=== PATIENT | female | born 2000 | race Caucasian/White ===

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

== ENCOUNTER 2020-05-30 13:06 | Emergency (ER) | payer OTHER ==
[~2020-05-30] VITALS: Wt 68.0 kg
[~2020-05-30 13:06] MED LIST changes: +PREDNISONE20 M1 PO
[2020-05-30 13:14] VITALS: BP 146/66
[2020-05-30 13:37] LABS: BILIRUBIN Negative (Negative); BLOOD Negative (Negative); CLARITY Clear (Clear); COLOR Yellow (Yellow); GLUCOSE Negative (Negative); KETONE 3+ (Negative); LEUKO ESTERASE Negative (Negative); NITRITE Negative (Negative); SPECIFIC GRAVITY 1.025 (1.001-1.030)
[2020-05-30 13:43] LABS: MUCOUS 1+; WBC 0-2 wbc/hpf (0-5)
[2020-05-30] MEDS ORDERED: DICLEGIS DR 101 EACH PO (13:51)
[2020-05-30] MEDS ORDERED: PRENATAL ONE D1 EACH PO (13:51)
== END 2020-05-30 13:54 | disposition home or self-care (01) ==
LOC: ED 13:06
PROVIDERS: Physician Assistant
DX: O21.8 Other vomiting complicating pregnancy (principal); R10.30 Lower abdominal pain, unspecified; Z3A.00 Weeks of gestation of pregnancy not specified

== ENCOUNTER → 2020-06-09 | Outpatient (CLI) | payer OTHER ==
[~2020-06-09] MED LIST changes: +DICLEGIS DR 101 EACH PO; +PRENATAL ONE D1 EACH PO
== END | disposition home or self-care (01) ==
LOC: COVID19 15:40
PROVIDERS: ATTEND Family Medicine
DX: Z20.828 Contact with and (suspected) exposure to other viral communicable diseases (principal)

== ENCOUNTER → 2020-07-03 | Outpatient (CLI) | payer OTHER | END | disposition home or self-care (01) | LOC: US 13:00 | PROVIDERS: ATTEND Nurse Practitioner Women's Health | DX: Z34.91 Encounter for supervision of normal pregnancy, unspecified, first trimester (principal); Z3A.12 12 weeks gestation of pregnancy ==

== ENCOUNTER → 2020-08-31 | Outpatient (CLI) | payer OTHER | END | disposition home or self-care (01) | LOC: US 14:47 | PROVIDERS: ATTEND Nurse Practitioner Women's Health | DX: O32.1XX0 Maternal care for breech presentation, not applicable or unspecified (principal); Z3A.20 20 weeks gestation of pregnancy ==

== ENCOUNTER 2022-06-29 17:01 | Emergency (ER) | payer OTHER ==
[~2022-06-29] VITALS: Wt 68.0 kg
[2022-06-29 17:13] VITALS: BP 111/71
[2022-06-29] MEDS ORDERED: Ondansetron4 MG PO (17:48)
[2022-06-29 18:13] LABS: MEAN CORPUSCULAR HGB 28.1 pg (27.0-31.0); MEAN CORPUSCULAR HGB CONC 31.9 g/dl (33.0-37.0); MEAN PLATELET VOLUME 10.2 fl (9.6-12.3); PLATELET COUNT AUTOMATED 282 10*3/uL (130-400); RED BLOOD COUNT 5.34 10*6/uL (4.10-5.10); RED CELL DISTRI WIDTH 12.4 % (0-14.5); WHITE BLOOD COUNT 10.9 10*3/uL (4.8-10.8)
[2022-06-29 18:15] LABS: MANUAL DIFF REFLEX YES
[2022-06-29 18:30] LABS: ALKALINE PHOSPHATASE 77 U/L (46-116); BUN 15 mg/dl (9-23); CHLORIDE 107 mmol/L (98-107); POTASSIUM 4.1 mmol/L (3.4-5.1); SGPT/ALT 12 U/L (10-49); TOTAL PROTEIN 7.7 gm/dL (6.0-8.0)
[2022-06-29 18:33] LABS: PLATELET SUFFICIENCY NORMAL (NORMAL); TOTAL CELLS COUNTED 100 #CELLS; TOXIC GRANULATION SLIGHT
== END 2022-06-29 18:50 | disposition home or self-care (01) ==
LOC: ED 17:01
PROVIDERS: Student in an Organized Health Care Education/Training Program
DX: R11.2 Nausea with vomiting, unspecified (principal); Z98.890 Other specified postprocedural states

== ENCOUNTER 2023-03-09 16:33 | Emergency (ER) | payer OTHER ==
[~2023-03-09 16:33] MED LIST changes: +Ondansetron4 MG PO
[2023-03-09 16:52] VITALS: BP 121/67
[2023-03-09] MEDS ORDERED: PENICILLIN VK500 MG PO (17:45)
== END 2023-03-09 17:55 | disposition home or self-care (01) ==
LOC: ED 16:33
DX: K08.89 Other specified disorders of teeth and supporting structures (principal); Z98.890 Other specified postprocedural states

== ENCOUNTER 2023-09-30 22:48 | Emergency (ER) | payer OTHER ==
[~2023-09-30] VITALS: Ht 157.4 cm; Wt 79.8 kg
[~2023-09-30 22:48] MED LIST changes: +PENICILLIN VK500 MG PO
[2023-09-30 22:57] VITALS: BP 151/96
[2023-09-30] MEDS ORDERED: Ondansetron Hydrochloride 4 MG/2 ML VIAL IV ONE (23:10)
[2023-09-30] MEDS ORDERED: SODIUM CHLORIDE 0.9% 1,000 ML IV ONE ×2 (23:10→23:24)
[2023-09-30 23:34] LABS: BILIRUBIN Negative (Negative); BLOOD Negative (Negative); CLARITY Cloudy (Clear); COLOR Yellow (Yellow); GLUCOSE Negative (Negative); KETONE 1+ (Negative); LEUKO ESTERASE Negative (Negative); NITRITE Negative (Negative); SPECIFIC GRAVITY 1.025 (1.001-1.030)
[2023-09-30 23:44] LABS: BACTERIA 1+; MUCOUS 1+; RBC 0-2 rbc/hpf (0-2)
== END 2023-10-01 00:55 | disposition home or self-care (01) ==
LOC: ED 22:48
PROVIDERS: Internal Medicine
DX: O21.0 Mild hyperemesis gravidarum (principal); Z3A.01 Less than 8 weeks gestation of pregnancy; Z98.890 Other specified postprocedural states

== ENCOUNTER → 2023-10-20 | Outpatient (CLI) | payer OTHER | END | disposition home or self-care (01) | LOC: US 14:49 | PROVIDERS: ATTEND Nurse Practitioner Women's Health | DX: Z34.81 Encounter for supervision of other normal pregnancy, first trimester (principal); Z3A.09 9 weeks gestation of pregnancy ==

== ENCOUNTER → 2024-10-02 | Outpatient (CLI) | payer OTHER | END | disposition home or self-care (01) | LOC: US 15:00 | PROVIDERS: ATTEND Nurse Practitioner Women's Health | DX: Z34.81 Encounter for supervision of other normal pregnancy, first trimester (principal); Z3A.01 Less than 8 weeks gestation of pregnancy ==